=== PATIENT | female | born 1960 | race Caucasian/White ===

== ENCOUNTER 2021-07-05 08:00 | Outpatient (CLI) | payer MEDICAID ==
--- NOTE | 2021-07-05 18:27 | XRAY Report ---
PROCEDURE: Chest 2 View X-Ray INDICATIONS: VIRAL LOWER RESPIRATORY INFECTION TECHNIQUE: 2 view(s) of the chest. COMPARISON: None. FINDINGS: Surgical changes and devices: None. Lungs and pleura: No pleural effusions or pneumothorax. Lungs are clear. Mediastinum: Mediastinal contours are normal. Heart size is normal. Bones and chest wall: No suspicious bony abnormalities. Soft tissues appear unremarkable. IMPRESSION: Normal chest plain films, without infiltrates. If there is strong clinical concern for a developing or new pulmonary process, please consider a shor t-term follow-up 2 view chest series, performed in deep inspiration. Reviewed by: Andrade Maldonado MD on 07/05/2021 5:26 PM [facility] Approved by: Andrade Maldonado MD on 07/05/2021 5:26 PM [facility] Station ID: [id number]
== END 2021-07-05 23:59 | disposition home or self-care (01) ==
LOC: DI.S 08:00
PROVIDERS: ATTEND Emergency Medicine
DX: B34.9 Viral infection, unspecified (principal)